=== PATIENT | female | born 1975 | race Two or more races ===

== ENCOUNTER → 2017-09-09 | Outpatient (CLI) | payer OTHER | LOC: BRMIMAGING 14:20 | PROVIDERS: ATTEND Family Medicine | DX: Z12.31 Encounter for screening mammogram for malignant neoplasm of breast (principal) ==

== ENCOUNTER → 2018-10-10 | Outpatient (CLI) | payer OTHER | LOC: BRMIMAGING 15:01 | PROVIDERS: ATTEND Family Medicine | DX: Z12.31 Encounter for screening mammogram for malignant neoplasm of breast (principal); Z80.3 Family history of malignant neoplasm of breast ==